=== PATIENT | male | born 1960 | race Caucasian/White ===

== ENCOUNTER → 2016-10-31 | Outpatient (CLI) | payer MEDICAID ==
[~2016-10-31] MED LIST: DILTIAZEM ER120 MG PO; Roxicodone5 MG NG; SENNA LAXATIVE8.6 MG PO
[2016-10-31 13:23] LABS: LYMPH # 2.7 K/mm3 (0.7-4.5); LYMPH % 22.2 % (10-50)
[2016-10-31 13:26] LABS: BUN 14 mg/dL (7-18)
[2016-10-31 13:31] LABS: GFR (ESTIMATED) 117 ML/MIN (>60)
[2016-10-31 13:41] LABS: HEMOGLOBIN 10.8 g/dL (14.1-18.0)
[2016-11-01 12:39] LABS: Prealbumin 18 mg/dL (10-36)
[2016-11-01 16:36] LABS: Alpha-1-Globulin 0.3 g/dL (0.0-0.4); Alpha-2-Globulin 1.1 g/dL (0.4-1.0); Gamma Globulin 1.6 g/dL (0.4-1.8); Protein, Total 7.3 g/dL (6.0-8.5)
== END ==
LOC: CARL-LAB 10:59
PROVIDERS: Family Medicine
DX: E46 Unspecified protein-calorie malnutrition (principal); R63.4 Abnormal weight loss

== ENCOUNTER → 2017-01-20 | Outpatient (CLI) | payer MEDICAID ==
[2017-01-20 13:57] LABS: HEMOGLOBIN 13.3 g/dL (14.1-18.0); LYMPH # 3.6 K/mm3 (0.7-4.5); LYMPH % 32.8 % (10-50)
[2017-01-20 19:11] LABS: BUN 12 mg/dL (7-18)
[2017-01-20 19:12] LABS: GFR (ESTIMATED) 100 ML/MIN (>60)
[2017-01-21 06:41] LABS: HIV Screen 4th Generation wRfx Non Reactive (Non Reactive)
[2017-01-21 16:36] LABS: HBsAg Screen Negative (Negative); Hep A Ab, IgM Negative (Negative); Hep B Core Ab, IgM Negative (Negative); Hep C Virus Ab >11.0 (0.0-0.9)
== END ==
LOC: CARL-LAB 10:16
PROVIDERS: Nurse Practitioner Family
DX: R10.9 Unspecified abdominal pain (principal); L03.90 Cellulitis, unspecified; Z87.898 Personal history of other specified conditions; Z13.29 Encounter for screening for other suspected endocrine disorder; Z13.220 Encounter for screening for lipoid disorders
CPT/HCPCS: G0432